=== PATIENT | male | born 1995 | race American Indian/Alaskan Native ===

== ENCOUNTER 2018-05-24 19:59 | Emergency (ER) | payer SELFPAY ==
[2018-05-24] MEDS ORDERED: ALBUTEROL 2.5 MG/3 ML NEB SOL ONE (20:34)
[2018-05-24] MEDS ORDERED: DEXAMETHASONE 4 MG/ML VIAL ONE (20:35)
[2018-05-24] MEDS ORDERED: DIPHENHYDRAMINE 25 MG TAB/CAP ONE (21:07)
--- NOTE | 2018-05-24 21:30 | ER ---
Nurse's Notes [facility] Name: Xavi Smith Age: 22 yrs Sex: Male : 1995 Arrival Date: 05/24/2018 Time: 20:00 Bed 25 Private MD: Diagnosis: Unspecified asthma with (acute) exacerbation Presentation: 05/24 20:06 Presenting complaint: Patient states: Cough with SOB since March. Dx with allergies aj by PCP. Reports having breathing treatments at home which help. Transition of care: patient was not received from another setting of care. Onset of symptoms was April 09, 2019. Risk Assessment: Do you want to hurt yourself or someone else? Patient reports no desire to harm self or others. Initial Sepsis Screen: Does the patient meet any 2 criteria? No. Patient's initial sepsis screen is negative. Does the patient have a suspected source of infection? No. Patient's initial sepsis screen is negative. Care prior to arrival: None. 20:06 Method Of Arrival: Ambulatory aj 20:06 Acuity: SLOAN 3 aj Triage Assessment: 20:08 General: Appears in no apparent distress. comfortable, Behavior is calm, cooperative, aj appropriate for age. Pain: Denies pain. Neuro: Level of Consciousness is awake, alert, obeys commands, Oriented to person, place, time, situation, Appropriate for age. Respiratory: Reports shortness of breath cough that is Airway is patent Respiratory effort is even, unlabored, Respiratory pattern is regular, symmetrical, Breath sounds with wheezes bilaterally. Onset: The symptoms/episode began/occurred gradually, the patient has moderate shortness of breath. Derm: Skin is intact, is healthy with good turgor, Skin is pink, warm \T\ dry. normal. Historical: - Allergies: 20:08 No Known Allergies; aj - Home Meds: 20:08 None [Active]; aj - PMHx: 20:08 None; aj - PSHx: 20:08 None; aj - Immunization history:: Adult Immunizations up to date. - Social history:: Smoking status: Patient/guardian denies using tobacco. - Ebola Screening: : Patient negative for fever greater than or equal to 101.5 degrees Fahrenheit, and additional compatible Ebola Virus Disease symptoms Patient denies exposure to infectious person Patient denies travel to an Ebola-affected area in the 21 days before illness onset No symptoms or risks identified at this time. Screenin:02 Abuse screen: Denies threats or abuse. Nutritional screening: No deficits noted. tl3 Tuberculosis screening: No symptoms or risk factors identified. Fall Risk None identified. Assessment: 20:15 General: Appears uncomfortable, well groomed, well developed, well nourished, Behavior tl3 is calm, cooperative, appropriate for age. Pain: Denies pain. Pain: Complains of pain in throat. Neuro: Level of Consciousness is awake, alert, obeys commands, Oriented to person, place, time, situation, Appropriate for age. Cardiovascular: Patient's skin is warm and dry. Rhythm is regular. Respiratory: Airway is patent Respiratory effort is even, labored, Respiratory pattern is regular, symmetrical, Breath sounds with wheezes bilaterally. GI: No signs and/or symptoms were reported involving the gastrointestinal system. : No signs and/or symptoms were reported regarding the genitourinary system. EENT: Reports nasal congestion nasal discharge. Derm: No signs and/or symptoms reported regarding the dermatologic system. Musculoskeletal: No signs and/or symptoms reported regarding the musculoskeletal system. 22:07 Reassessment: Patient appears in no apparent distress at this time. No changes from tl3 previously documented assessment. Patient and/or family updated on plan of care and expected duration. Pain level reassessed. Patient is alert, oriented x 3, equal unlabored respirations, skin warm/dry/pink. Patient states feeling better. Patient states symptoms have improved. Vital Signs: 20:08 BP 151 / 85; Pulse 108; Resp 20; Temp 97.4; Pulse Ox 98% on R/A; Weight 86.18 kg; aj Height 5 ft. 5 in. (165.10 cm); 22:02 BP 117 / 76; Pulse 93; Resp 18; Pulse Ox 100% on R/A; tl3 20:08 Body Mass Index 31.62 (86.18 kg, 165.10 cm) ED Course: 20:00 Patient arrived in ED. am2 20:08 Triage completed. aj 20:08 Arm band placed on left wrist. Patient placed in an exam room. aj 20:11 Karan Perez NP is PHCP. pm1 20:11 Alonzo Kessler MD is Attending Physician. pm1 20:15 Patient has correct armband on for positive identification. Bed in low position. tl3 20:16 Shelley Hampton, RN is Primary Nurse. tl3 22:05 No provider procedures requiring assistance completed. Patient did not have IV access tl3 during this emergency room visit. Administered Medications: 20:30 Drug: Albuterol 5 mg Route: Inhalation; tl3 20:59 Follow up: Response: Marked relief of symptoms tl3 20:30 Drug: Decadron - Dexamethasone 10 mg {Note: po.} Route: IVP; Site: Other; tl3 20:58 Follow up: Response: No adverse reaction tl3 20:55 Drug: Benadryl 25 mg Route: PO; tl3 20:59 Follow up: Response: Medication administered at discharge. tl3 Outcome: 21:29 Discharge ordered by . pm1 22:03 Patient left the ED. tl3 22:07 Discharged to home ambulatory. tl3 22:07 Condition: stable 22:07 Discharge instructions given to patient, Instructed on discharge instructions, follow up and referral plans. medication usage, Demonstrated understanding of instructions, follow-up care, medications, Prescriptions given X 2. Signatures: Twyla Mcdaniel, RN Karan Vela, DANICA [employer] MAINTENA[employer]CE SPECIALIST pm1 Twyla Das am2 Shelley Hampton, RN RN tl3
--- NOTE | 2018-05-24 21:30 | EDPHYS ---
Physician Documentation [facility] Name: Xavi Smith Age: 22 yrs Sex: Male : 1995 Arrival Date: 05/24/2018 Time: 20:00 Bed 25 Private MD: ED Physician Alonzo Kessler HPI: 05/24 21:42 This 22 yrs old Other Male presents to ER via Ambulatory with complaints of Breathing pm1 Difficulty. 21:42 The patient has shortness of breath at rest. Onset: The symptoms/episode began/occurred pm1 1 month(s) ago. Duration: The symptoms are continuous. The patient's shortness of breath is aggravated by nothing, is alleviated by nothing. Associated signs and symptoms: Pertinent negatives: chest pain, non-productive cough, productive cough, dizziness, fever, nausea, vomiting. Severity of symptoms: in the emergency department the symptoms are worse. The patient has not experienced similar symptoms in the past. The patient has been recently seen by a physician: the patient's primary care provider, diagnosed with allergies. Historical: - Allergies: 20:08 No Known Allergies; aj - Home Meds: 20:08 None [Active]; aj - PMHx: 20:08 None; aj - PSHx: 20:08 None; aj - Immunization history:: Adult Immunizations up to date. - Social history:: Smoking status: Patient/guardian denies using tobacco. - Ebola Screening: : Patient negative for fever greater than or equal to 101.5 degrees Fahrenheit, and additional compatible Ebola Virus Disease symptoms Patient denies exposure to infectious person Patient denies travel to an Ebola-affected area in the 21 days before illness onset No symptoms or risks identified at this time. ROS: 21:42 Constitutional: Negative for fever, chills, and weight loss, Eyes: Negative for injury, pm1 pain, redness, and discharge, ENT: Negative for injury, pain, and discharge, Neck: Negative for injury, pain, and swelling, Cardiovascular: Negative for chest pain, palpitations, and edema. 21:42 Abdomen/GI: Negative for abdominal pain, nausea, vomiting, diarrhea, and constipation, Back: Negative for injury and pain, : Negative for injury, bleeding, discharge, and swelling, MS/Extremity: Negative for injury and deformity, Skin: Negative for injury, rash, and discoloration, Neuro: Negative for headache, weakness, numbness, tingling, and seizure. 21:42 Respiratory: Positive for dyspnea on exertion, shortness of breath, wheezing. Exam: 21:42 Constitutional: This is a well developed, well nourished patient who is awake, alert, pm1 and in no acute distress. Head/Face: Normocephalic, atraumatic. Eyes: Pupils equal round and reactive to light, extra-ocular motions intact. Lids and lashes normal. Conjunctiva and sclera are non-icteric and not injected. Cornea within normal limits. Periorbital areas with no swelling, redness, or edema. ENT: Nares patent. No nasal discharge, no septal abnormalities noted. Tympanic membranes are normal and external auditory canals are clear. Oropharynx with no redness, swelling, or masses, exudates, or evidence of obstruction, uvula midline. Mucous membranes moist. Neck: Trachea midline, no thyromegaly or masses palpated, and no cervical lymphadenopathy. Supple, full range of motion without nuchal rigidity, or vertebral point tenderness. No Meningismus. Chest/axilla: Normal chest wall appearance and motion. Nontender with no deformity. No lesions are appreciated. Cardiovascular: Regular rate and rhythm with a normal S1 and S2. No gallops, murmurs, or rubs. Normal PMI, no JVD. No pulse deficits. 21:42 Abdomen/GI: Soft, non-tender, with normal bowel sounds. No distension or tympany. No guarding or rebound. No evidence of tenderness throughout. Back: No spinal tenderness. No costovertebral tenderness. Full range of motion. Skin: Warm, dry with normal turgor. Normal color with no rashes, no lesions, and no evidence of cellulitis. MS/ Extremity: Pulses equal, no cyanosis. Neurovascular intact. Full, normal range of motion. 21:42 Respiratory: the patient does not display signs of respiratory distress, Respirations: normal, Breath sounds: wheezing: expiratory that is mild, is heard diffusely. 21:42 Neuro: Orientation: is normal, Motor: is normal, moves all fours. Vital Signs: 20:08 BP 151 / 85; Pulse 108; Resp 20; Temp 97.4; Pulse Ox 98% on R/A; Weight 86.18 kg; aj Height 5 ft. 5 in. (165.10 cm); 22:02 BP 117 / 76; Pulse 93; Resp 18; Pulse Ox 100% on R/A; tl3 20:08 Body Mass Index 31.62 (86.18 kg, 165.10 cm) aj MDM: 20:11 Patient medically screened. pm1 21:27 Data reviewed: vital signs. Data interpreted: Pulse oximetry: on room air is 98 %. pm1 Interpretation: normal. Counseling: I had a detailed discussion with the patient and/or guardian regarding: the historical points, exam findings, and any diagnostic results supporting the discharge/admit diagnosis, the need for outpatient follow up, to return to the emergency department if symptoms worsen or persist or if there are any questions or concerns that arise at home. Administered Medications: 20:30 Drug: Albuterol 5 mg Route: Inhalation; tl3 20:59 Follow up: Response: Marked relief of symptoms tl3 20:30 Drug: Decadron - Dexamethasone 10 mg {Note: po.} Route: IVP; Site: Other; tl3 20:58 Follow up: Response: No adverse reaction tl3 20:55 Drug: Benadryl 25 mg Route: PO; tl3 20:59 Follow up: Response: Medication administered at discharge. tl3 Disposition: 23:02 Co-signature as Attending Physician, Alonzo Kessler MD. rn Disposition: 05/24/18 21:29 Discharged to Home. Impression: Unspecified asthma with (acute) exacerbation. - Condition is Stable. - Discharge Instructions: Asthma, Adult, How to Use an Inhaler. - Prescriptions for Albuterol Sulfate 2.5 mg /3 mL (0.083 %) Inhalation Solution for Nebulization - inhale 1 unit by NEBULIZATION route every 8 hours As needed; 1 box. Medrol (Butch) 4 mg Oral Tablets, Dose Pack - take 1 tablet by ORAL route as directed - follow package instructions; 1 packet. Albuterol Sulfate 90 mcg/actuation - inhale 1-2 puff by INHALATION route every 4-6 hours; 1 Inhaler. - Medication Reconciliation Form, Thank You Letter form. - Follow up: Emergency Department; When: As needed; Reason: Worsening of condition. Follow up: Private Physician; When: 2 - 3 days; Reason: Recheck today's complaints, Continuance of care, Re-evaluation by your physician. - Problem is new. - Symptoms have improved. Signatures: Twyla Mcdaniel RN RN Alonzo Santiago MD MD rn Marinas, Patrick, APPLIQUE SEWER APPLIQUE SEWER pm1 Shelley Hampton, RN RN tl3 Corrections: (The following items were deleted from the chart) 22:03 21:29 05/24/2018 21:29 Discharged to Home. Impression: Unspecified asthma with (acute) tl3 exacerbation. Condition is Stable. Forms are Medication Reconciliation Form, Thank You Letter, Antibiotic Education, Prescription Opioid Use. Follow up: Emergency Department; When: As needed; Reason: Worsening of condition. Follow up: Private Physician; When: 2 - 3 days; Reason: Recheck today's complaints, Continuance of care, Re-evaluation by your physician. Problem is new. Symptoms have improved. pm1
== END 2018-05-24 22:03 | disposition home or self-care (01) ==
LOC: ER 19:59
DX: J45.901 Unspecified asthma with (acute) exacerbation (principal)
CPT/HCPCS: 96374; 99284

== ENCOUNTER 2018-09-22 13:49 | Emergency (ER) | payer SELFPAY ==
[2018-09-22 14:33] LABS: Absolute Lymphocytes (CBC) 2.1 K/uL (0.7-4.9); Absolute Monocytes 0.5 K/uL (0.1-1.3); Absolute Neutrophil 2.4 K/uL (1.8-8.0); Eosinophils % 18.6 % (0-4.4); Hematocrit 48.1 % (39.6-49.0); Lymphocytes % 33.8 % (15.3-44.8); MPV 10.9 fL (7.6-11.3); Monocytes % 8.7 % (3.3-12.3); RBC Red Blood Cell Count 5.53 M/uL (4.33-5.43)
[2018-09-22] MEDS ORDERED: LEVALBUTEROL 1.25 MG/3 ML NEB ONE (14:34)
[2018-09-22] MEDS ORDERED: METHYLPREDNISOLONE 125 MG INJ ONE (14:34)
[2018-09-22 14:54] LABS: ALT/SGPT 65 U/L (12-78); AST/SGOT 26 U/L (15-37); Albumin 3.9 g/dL (3.4-5.0); Alkaline Phosphatase 119 U/L (45-117); BUN Blood Urea Nitrogen 10 mg/dL (7-18); Bicarbonate 27 mmol/L (21-32); Bilirubin Total 0.3 mg/dL (0.2-1.0); Glucose Level 96 mg/dL (74-106); Potassium 4.1 mmol/L (3.5-5.1); Protein, Total 7.7 g/dL (6.4-8.2); Sodium Level 141 mmol/L (136-145)
--- NOTE | 2018-09-22 15:02 | RAD REPORT ---
EXAM DESCRIPTION: RAD - Chest Pa And Lat (2 Views) - 09/22/2018 2:54 pm CLINICAL HISTORY: shortness of breath Chest pain. COMPARISON: No comparisons FINDINGS: The lungs are clear. The heart is normal in size. No displaced fractures. IMPRESSION: No acute or concerning finding suspected.
[2018-09-22 15:19] LABS: Platelet Estimate ADEQ; Urine White Blood Cell Casts OK
[2018-09-22 15:20] LABS: Blood Morphology Comment NOT SEEN (NOT SEEN)
--- NOTE | 2018-09-22 15:52 | EDPHYS ---
Physician Documentation [facility] Name: Xavi Smith Age: 23 yrs Sex: Male : 1995 Arrival Date: 09/22/2018 Time: 13:54 Bed 14 Private MD: ED Physician Ryan Stanford HPI: 09/22 14:06 This 23 yrs old Other Male presents to ER via Ambulatory with complaints of Breathing jmm Difficulty. 14:06 The patient has shortness of breath at rest. Onset: The symptoms/episode began/occurred jmm gradually, 3 day(s) ago. Duration: The symptoms are continuous. The patient's shortness of breath is aggravated by nothing, is alleviated by nothing. This is a 23 year old male with no known chronic medical conditions that presents to the ED with complaints of cough, wheezing, shortness of breath beginning approx 3 days ago. Patient has had multiple similar episodes the since this past February. Patient denies fever. Denies leg swelling, denies recent long travel. . Historical: - Allergies: 13:57 No Known Allergies; aj - Home Meds: 13:57 Albuterol Nebulizer [Active]; aj - PMHx: 13:57 None; aj - PSHx: 13:57 None; aj - Immunization history:: Adult Immunizations up to date. - Social history:: Smoking status: Patient/guardian denies using tobacco. - Ebola Screening: : Patient negative for fever greater than or equal to 101.5 degrees Fahrenheit, and additional compatible Ebola Virus Disease symptoms Patient denies exposure to infectious person Patient denies travel to an Ebola-affected area in the 21 days before illness onset No symptoms or risks identified at this time. ROS: 14:06 Constitutional: Negative for fever, chills, and weight loss, Cardiovascular: Negative jmm for chest pain, palpitations, and edema. 14:06 Respiratory: Positive for shortness of breath, wheezing. 14:06 MS/extremity: Negative for swelling. 14:06 All other systems are negative. Exam: 14:06 Constitutional: This is a well developed, well nourished patient who is awake, alert, jmm and in no acute distress. Head/Face: atraumatic. Eyes: EOMI, no conjunctival erythema appreciated ENT: Moist Mucus Membranes Neck: Trachea midline, Supple Chest/axilla: Normal chest wall appearance and motion. Cardiovascular: Regular rate and rhythm. No edema appreciated 14:06 Abdomen/GI: Non distended, soft Back: Normal ROM Skin: General appearance color normal MS/ Extremity: Moves all extremities, no obvious deformities appreciated, no edema noted to the lower extremities Neuro: Awake and alert, normal gait Psych: Behavior is normal, Mood is normal, Patient is cooperative and pleasant 14:06 Respiratory: mild respiratory distress is noted, Respirations: Breath sounds: wheezing: that is moderate, is heard diffusely. Vital Signs: 13:57 BP 130 / 66; Pulse 79; Resp 20; Temp 98.3; Pulse Ox 94% on R/A; Weight 90.72 kg; Height aj 5 ft. 5 in. (165.10 cm); 15:00 BP 128 / 75; Pulse 74; Resp 18 S; Pulse Ox 97% on R/A; Pain 0/10; aa5 13:57 Body Mass Index 33.28 (90.72 kg, 165.10 cm) aj MDM: 14:06 Patient medically screened. [facility] 15:50 Data reviewed: vital signs, nurses notes, lab test result(s), radiologic studies, plain [facility] films. 09/22 14:14 Order name: CBC with Diff; Complete Time: 15:28 [facility] 09/22 14:14 Order name: CMP; Complete Time: 15:28 [facility] 09/22 14:14 Order name: Chest Pa And Lat (2 Views) XRAY; Complete Time: 15:28 [facility] 09/22 14:40 Order name: CBC Smear Scan; Complete Time: 15:28 [facility] 09/22 14:14 Order name: Saline Lock; Complete Time: 14:27 [facility] Administered Medications: 14:25 Drug: Xopenex (3) 1.25 mg Route: Inhalation; aa5 14:30 Drug: SOLU-Medrol 125 mg Route: IVP; Site: right antecubital; aa5 14:40 Follow up: Response: No adverse reaction aa5 Disposition: 09/23 06:55 Co-signature as Attending Physician, Ryan Stanford MD I agree with the assessment and kdr plan of care. Disposition: 09/22/18 15:51 Discharged to Home. Impression: Acute bronchitis. - Condition is Stable. - Discharge Instructions: Acute Bronchitis, Adult. - Prescriptions for Prednisone 20 mg Oral Tablet - take 3 tablet by ORAL route once daily for 5 days; 15 tablet. Albuterol Sulfate 2.5 mg /3 mL (0.083 %) Inhalation Solution for Nebulization - inhale 1 unit by NEBULIZATION route every 8 hours As needed; 1 box. Albuterol Sulfate 90 mcg/actuation Inhalation - inhale 1-2 puff by INHALATION route every 4-6 hours; 1 Inhaler. - Medication Reconciliation Form, Thank You Letter, Antibiotic Education, Prescription Opioid Use form. - Follow up: Felix Mathew MD; When: 2 - 3 days; Reason: Recheck today's complaints, Continuance of care, Re-evaluation by your physician. Signatures: Dispatcher [employer] EDTwyla Morin, RN RN Ryan Goldstein MD MD kdr Mickail, Joel, PA PA jmm Calderon, Audri RN RN aa5 Corrections: (The following items were deleted from the chart) 09/22 16:03 15:51 09/22/2018 15:51 Discharged to Home. Impression: Acute bronchitis. Condition is aj Stable. Forms are Medication Reconciliation Form, Thank You Letter, Antibiotic Education, Prescription Opioid Use. Follow up: Felix Mathew; When: 2 - 3 days; Reason: Recheck today's complaints, Continuance of care, Re-evaluation by your physician. [place]
--- NOTE | 2018-09-22 15:52 | ER ---
Nurse's Notes [facility] Name: Xavi Smith Age: 23 yrs Sex: Male : 1995 Arrival Date: 09/22/2018 Time: 13:54 Bed 14 Private MD: Diagnosis: Acute bronchitis Presentation: 09/22 13:55 Presenting complaint: Patient states: Cough abd SOB with wheezing that started 2 days aj ago and patient reports he has not improved. Transition of care: patient was not received from another setting of care. Onset of symptoms was September 20, 2018. Risk Assessment: Do you want to hurt yourself or someone else? Patient reports no desire to harm self or others. Initial Sepsis Screen: Does the patient meet any 2 criteria? No. Patient's initial sepsis screen is negative. Does the patient have a suspected source of infection? No. Patient's initial sepsis screen is negative. Care prior to arrival: None. 13:55 Method Of Arrival: Ambulatory aj 13:55 Acuity: SLOAN 3 aj Triage Assessment: 13:57 General: Appears in no apparent distress. comfortable, Behavior is calm, cooperative, aj appropriate for age. Pain: Denies pain. Neuro: Level of Consciousness is awake, alert, obeys commands, Oriented to person, place, time, situation, Appropriate for age. Respiratory: Reports shortness of breath at rest cough that is Airway is patent Respiratory effort is even, unlabored, Respiratory pattern is regular, symmetrical. Derm: Skin is intact, is healthy with good turgor, Skin is pink, warm \\T\\ dry. normal. 14:00 Respiratory: Onset: The symptoms/episode began/occurred gradually, the patient has mild aa5 shortness of breath. Historical: - Allergies: 13:57 No Known Allergies; aj - Home Meds: 13:57 Albuterol Nebulizer [Active]; aj - PMHx: 13:57 None; aj - PSHx: 13:57 None; aj - Immunization history:: Adult Immunizations up to date. - Social history:: Smoking status: Patient/guardian denies using tobacco. - Ebola Screening: : Patient negative for fever greater than or equal to 101.5 degrees Fahrenheit, and additional compatible Ebola Virus Disease symptoms Patient denies exposure to infectious person Patient denies travel to an Ebola-affected area in the 21 days before illness onset No symptoms or risks identified at this time. Screenin:00 Abuse screen: Denies threats or abuse. Nutritional screening: No deficits noted. aa5 Tuberculosis screening: No symptoms or risk factors identified. Fall Risk None identified. Assessment: 14:00 General: Appears comfortable, Behavior is calm, cooperative. Pain: Denies pain. Neuro: aa5 Level of Consciousness is awake, alert, obeys commands, Oriented to person, place, time, situation. Cardiovascular: Heart tones S1 S2 present Rhythm is regular. Respiratory: Reports shortness of breath at rest since February 2018. Also reports cough since February 2018. Pt states "I get this gasping episodes and I start coughing really hard" Airway is patent Respiratory effort is even, unlabored, Respiratory pattern is regular, symmetrical, Breath sounds with wheezes bilaterally. GI: No signs and/or symptoms were reported involving the gastrointestinal system. : No signs and/or symptoms were reported regarding the genitourinary system. EENT: No signs and/or symptoms were reported regarding the EENT system. Derm: Skin is pink, warm \\T\\ dry. Musculoskeletal: Range of motion: intact in all extremities. 15:00 Reassessment: Patient is alert, oriented x 3, equal unlabored respirations, skin aa5 warm/dry/pink. Pt back from radiology. Pt states "I feel much better", reports SOB has improved. . Respiratory: Breath sounds are coarse bilaterally. 16:00 Reassessment: Patient is alert, oriented x 3, equal unlabored respirations, skin aa5 warm/dry/pink. Patient states feeling better. Patient states symptoms have improved. Vital Signs: 13:57 BP 130 / 66; Pulse 79; Resp 20; Temp 98.3; Pulse Ox 94% on R/A; Weight 90.72 kg; Height aj 5 ft. 5 in. (165.10 cm); 15:00 BP 128 / 75; Pulse 74; Resp 18 S; Pulse Ox 97% on R/A; Pain 0/10; aa5 13:57 Body Mass Index 33.28 (90.72 kg, 165.10 cm) aj ED Course: 13:54 Patient arrived in ED. mr 13:56 Triage completed. aj 13:57 Arm band placed on right wrist. Patient placed in an exam room. aj 14:00 Patient has correct armband on for positive identification. Bed in low position. Call aa5 light in reach. Side rails up X 1. Adult w/ patient. 14:01 Irwin Cabrera PA is PHCP. [facility] [place] 14:01 Ryan Stanford MD is Attending Physician. [facility] 14:05 Natalya Maki, RN is Primary Nurse. aa5 14:28 Initial lab(s) drawn, by [place], sent to lab. Inserted saline lock: 20 gauge in right em1 antecubital area, using aseptic technique. Blood collected. 14:53 Chest Pa And Lat (2 Views) XRAY In Process Unspecified. EDMS 15:00 No provider procedures requiring assistance completed. aa5 15:51 Felix Mathew MD is Referral Physician. [facility] 16:00 IV discontinued, intact, bleeding controlled, No redness/swelling at site. Pressure aa5 dressing applied. Administered Medications: 14:25 Drug: Xopenex (3) 1.25 mg Route: Inhalation; aa5 14:30 Drug: SOLU-Medrol 125 mg Route: IVP; Site: right antecubital; aa5 14:40 Follow up: Response: No adverse reaction aa5 Outcome: 15:51 Discharge ordered by MD. [facility] 16:00 Discharged to home ambulatory, with family. aa5 16:00 Condition: improved 16:00 Discharge instructions given to patient, Instructed on discharge instructions, follow up and referral plans. medication usage, Demonstrated understanding of instructions, follow-up care, medications, Prescriptions given X 3. 16:03 Patient left the ED. aj Signatures: Dispatcher [employer] EDAK Twyla Mcdaniel RN Irwin Jorge PA PA [facility] [place] , Tarah mr Mcelroy, Florentino em1 Natalya Maki, RN RN aa5
== END 2018-09-22 16:03 | disposition home or self-care (01) ==
LOC: ER 13:49
DX: J20.9 Acute bronchitis, unspecified (principal)
CPT/HCPCS: 36415; 71046; 80053; 85025; 96374; 99284; J2930